=== PATIENT | female | born 1940 | race Two or more races ===

== ENCOUNTER 2021-11-20 05:45 | Day surgery (SDC) | payer OTHER ==
[2021-11-20] MEDS ORDERED: PERCOCET 5-3251 EACH PO (12:52)
== END 2021-11-20 16:00 | disposition home or self-care (01) ==
LOC: CIR.AMB 05:45
PROVIDERS: ATTEND Surgery
DX: D35.1 Benign neoplasm of parathyroid gland (principal); E21.0 Primary hyperparathyroidism; E04.2 Nontoxic multinodular goiter; Z20.822 Contact with and (suspected) exposure to COVID-19

== ENCOUNTER 2023-11-19 13:27 | Emergency (ER) | payer OTHER ==
[~2023-11-19] VITALS: Ht 154.9 cm; Wt 55.8 kg
[~2023-11-19 13:27] MED LIST: PERCOCET 5-3251 EACH PO
[2023-11-19] MEDS ORDERED: COZAAR100 MG (13:46)
[2023-11-19] MEDS ORDERED: ZOCOR20 MG (13:46)
[2023-11-19] MEDS ORDERED: CALCIUM500 M1 (13:46)
[2023-11-19] MEDS ORDERED: 0.9 % SODIUM CHLORIDE 500 ML IV ONE (14:45)
[2023-11-19 15:34] LABS: HEMATOCRIT 30.9 % (36.0-45.00); HEMOGLOBIN 10.5 g/dL (12.0-15.00); MEAN CELL VOLUME 88.9 fL (80.00-100.00); MEAN CORPUSCULAR HEMOGLOBIN 30.1 pg (27.00-32.0); MEAN CORPUSCULAR HGB CONC 33.9 g/dl (32.0-36.0); PLATELET COUNT 343 K/uL (150-450); RED BLOOD COUNT 3.48 M/uL (4.00-6.00); RED CELL DISTRIBUTION WIDTH 14.2 % (11.5-14.5)
[2023-11-19 16:18] LABS: ALBUMIN 2.8 gm/dL (3.4-5.0); BILIRUBIN TOTAL 0.45 mg/dL (0.3-1.2); CREATININE SERUM 1.03 mg/dL (0.55-1.02); GFR 51.17; GLOBULINA 4.5 G/DL (2.4-3.5); MAGNESIUM 1.7 mg/dL (1.8-2.4); PHOSPHOROUS 3.5 mg/dL (2.5-4.9); TOTAL PROTEIN 7.3 gm/dL (6.4-8.2); TSH 1.25 uIU/mL (0.358-3.74)
[2023-11-19 16:21] LABS: CALCIUM 6.3 mg/dL (8.5-10.1); POTASSIUM 2.73 mEq/L (3.5-5.1)
[2023-11-19 16:52] LABS: PH,URINE 6.5 (5.0-8.0); URINE APPEARANCE Clear; URINE BILIRRUBIN Negative (NEGATIVE); URINE BLOOD Negative; URINE COLOR Yellow; URINE GLUCOSE Negative (NEGATIVE); URINE KETONE 15 (NEGATIVE); URINE LEUKOCYTE Negative; URINE NITRATE Negative; URINE PROTEIN Negative (NEGATIVE); URINE UROBILINOGEN 0.2 E.U./dl
[2023-11-19 16:53] LABS: URINE BACTERIA 8.8 uL (0.0-1933); URINE EPITHELIAL CELLS 2.4 uL (0.0-38.8)
[2023-11-19 17:16] LABS: URINE CRYSTALS FEW /HPF; URINE MUCUS SCANT; URINE RBC 1.5 uL (0.0-20.8)
[2023-11-19] MEDS ORDERED: MAGNESIUM SULFATE 2,000 MG in 0.9 % SODIUM CHLORIDE 100 ML IV NR (18:30)
[2023-11-19] MEDS ORDERED: POTASSIUM CHLORIDE/D5-0.9%NACL 1,000 ML IV ONE (21:15)
== END 2023-11-19 21:42 | disposition designated cancer center or children's hospital (05) ==
LOC: ER 13:29
PROVIDERS: Nurse Practitioner Family
DX: R53.1 Weakness (principal); E87.8 Other disorders of electrolyte and fluid balance, not elsewhere classified; E87.6 Hypokalemia; M25.571 Pain in right ankle and joints of right foot; E11.9 Type 2 diabetes mellitus without complications; I10 Essential (primary) hypertension; E20.9 Hypoparathyroidism, unspecified